=== PATIENT | female | born 1995 | race Two or more races ===

== ENCOUNTER 2023-05-16 18:45 | Emergency (ER) | payer OTHER ==
[~2023-05-16] VITALS: Ht 152.4 cm; Wt 72.7 kg
[2023-05-16 18:46] VITALS: BP 111/57; PULSE 96; RESP 16; TEMP 98.1
[2023-05-16] MEDS ORDERED: CORTSUSP AS (19:34)
[2023-05-16] MEDS ORDERED: IBUP-1554 PO (19:37)
[2023-05-16] MEDS ORDERED: ACET-66 PO (19:37)
== END 2023-05-16 19:58 | disposition home or self-care (01) ==
LOC: EMS 18:48
DX: H60.92 Unspecified otitis externa, left ear (principal); R59.9 Enlarged lymph nodes, unspecified
CPT/HCPCS: 99283; Z7502